=== PATIENT | female | born 1970 | race Caucasian/White ===

== ENCOUNTER 2020-08-17 19:00 | Emergency (ER) | payer SELFPAY ==
[~2020-08-17] VITALS: Ht 170.2 cm; Wt 77.3 kg
[2020-08-17] MEDS ORDERED: XYZAL5 MG PO (19:43)
[2020-08-17] MEDS ORDERED: SYMBICORT1 AE2 IH (19:44)
[2020-08-17] MEDS ORDERED: RT ALBUTEROL CC18 GM IH (19:44)
[2020-08-17 20:15] LABS: URINE WBC 0 /hpf (0-3)
[2020-08-17 20:19] LABS: BASO # 0.1 (0.02-0.10); EOS % 7.4 % (1.0-5.0); HEMOGLOBIN 9.3 g/dL (12.5-16.0); LYMPH# 1.7 (1.50-4.00); MEAN PLATELET VOLUME 8.8 fl (7.4-10.4); MONO # 0.7 (0.20-0.80); RED BLOOD COUNT 5.21 M/mm3 (4.10-5.30); WHITE BLOOD COUNT 12.6 K/mm3 (4.8-10.8)
[2020-08-17 20:22] LABS: EOS # 0.9 (0.04-0.40); MEAN CELL VOLUME 65 fl (78-100); MEAN CORPUSCULAR HEMOGLOBIN 18 pg (27-31); MEAN CORPUSCULAR HGB CONC 27 g/dL (33-37); NEU # 9.2 (1.40-6.50); PLATELET COUNT 727 K/mm3 (130-400)
[2020-08-17 20:29] LABS: ALBUMIN 4.4 g/dL (3.5-5.0)
[2020-08-17 20:30] LABS: POTASSIUM 4.1 mmol/L (3.5-5.1)
[2020-08-17 20:32] LABS: TOTAL PROTEIN 7.7 g/dL (6.4-8.3)
[2020-08-17 20:33] LABS: URINE APPEARANCE CLEAR; URINE COLOR YELLOW
[2020-08-17 20:34] LABS: URINE BILIRUBIN NEGATIVE (NEGATIVE); URINE BLOOD NEGATIVE (NEGATIVE); URINE GLUCOSE NEGATIVE (NEGATIVE); URINE KETONE NEGATIVE (NEGATIVE); URINE LEUKOCYTE ESTERASE NEGATIVE (NEGATIVE); URINE NITRATE NEGATIVE (NEGATIVE); URINE PROTEIN(semi-quant) TRACE mg/dL (NEGATIVE); URINE UROBILINOGEN NORMAL (NORMAL)
[2020-08-17 20:34] LABS: TOTAL BILIRUBIN 0.6 mg/dL (0.2-1.2)
[2020-08-17 22:11] VITALS: BP 154/82
== END 2020-08-17 21:37 | disposition home or self-care (01) ==
LOC: ED 19:00
PROVIDERS: Physician Assistant
DX: R33.9 Retention of urine, unspecified (principal); D64.9 Anemia, unspecified; J45.909 Unspecified asthma, uncomplicated; Z88.2 Allergy status to sulfonamides; Z88.6 Allergy status to analgesic agent; Z79.51 Long term (current) use of inhaled steroids; Z79.899 Other long term (current) drug therapy

== ENCOUNTER 2021-02-12 15:48 | Emergency (ER) | payer SELFPAY ==
[~2021-02-12 15:48] MED LIST: RT ALBUTEROL CC18 GM IH; SYMBICORT1 AE2 IH; XYZAL5 MG PO
[2021-02-12 16:57] LABS: URINE APPEARANCE CLEAR; URINE BILIRUBIN NEGATIVE (NEGATIVE); URINE BLOOD NEGATIVE (NEGATIVE); URINE COLOR YELLOW; URINE GLUCOSE NEGATIVE (NEGATIVE); URINE KETONE NEGATIVE (NEGATIVE); URINE LEUKOCYTE ESTERASE NEGATIVE (NEGATIVE); URINE NITRATE NEGATIVE (NEGATIVE); URINE PROTEIN(semi-quant) NEGATIVE (NEGATIVE); URINE UROBILINOGEN NORMAL (NORMAL); URINE WBC 0-1 /hpf (0-3)
[2021-02-12 17:46] VITALS: BP 160/88
== END 2021-02-12 17:43 | disposition home or self-care (01) ==
LOC: ED 15:48
PROVIDERS: Family Medicine
DX: R33.9 Retention of urine, unspecified (principal); R10.30 Lower abdominal pain, unspecified; J45.909 Unspecified asthma, uncomplicated; Z96.0 Presence of urogenital implants; Z88.2 Allergy status to sulfonamides; Z79.899 Other long term (current) drug therapy

== ENCOUNTER 2021-03-25 18:07 | Emergency (ER) | payer SELFPAY ==
[~2021-03-25] VITALS: Ht 162.6 cm; Wt 77.3 kg
[2021-03-25 19:37] LABS: URINE WBC 0 /hpf (0-3)
[2021-03-25 19:43] LABS: URINE APPEARANCE CLEAR; URINE BILIRUBIN NEGATIVE (NEGATIVE); URINE BLOOD NEGATIVE (NEGATIVE); URINE COLOR YELLOW; URINE GLUCOSE NEGATIVE (NEGATIVE); URINE KETONE NEGATIVE (NEGATIVE); URINE LEUKOCYTE ESTERASE NEGATIVE (NEGATIVE); URINE NITRATE NEGATIVE (NEGATIVE); URINE PROTEIN(semi-quant) NEGATIVE (NEGATIVE); URINE UROBILINOGEN NORMAL (NORMAL)
[2021-03-25 20:14] VITALS: BP 118/74
== END 2021-03-25 20:14 | disposition home or self-care (01) ==
LOC: ED 18:07
PROVIDERS: Family Medicine
DX: R33.9 Retention of urine, unspecified (principal); J45.909 Unspecified asthma, uncomplicated; Z88.2 Allergy status to sulfonamides; Z79.51 Long term (current) use of inhaled steroids

== ENCOUNTER → 2021-11-29 | Outpatient (CLI) | payer BC ==
[2021-11-29 15:57] LABS: URINE APPEARANCE CLEAR; URINE COLOR DK ORANGE
[2021-11-29 16:10] LABS: URINE MUCUS PRESENT (NOT PRESENT)
== END ==
LOC: LAB 14:57
PROVIDERS: Nurse Practitioner Family
DX: R33.8 Other retention of urine (principal)

== ENCOUNTER → 2022-10-30 | Outpatient (CLI) | payer BC | LOC: RAD 11:32 | DX: M25.561 Pain in right knee (principal) ==

== ENCOUNTER → 2024-11-13 | Outpatient (CLI) | payer OTHER | LOC: RAD 10:02 | DX: M89.9 Disorder of bone, unspecified (principal); M25.812 Other specified joint disorders, left shoulder ==